=== PATIENT | female | born 1965 | race Caucasian/White ===

== ENCOUNTER → 2016-10-13 | Outpatient (CLI) | payer BC ==
--- NOTE | 2016-10-13 18:46 | WWHP ---
CHIEF COMPLAINT: Patient is here for her routine gynecologic exam and mammogram. HPI: This is a 51-year-old G0 with an LMP of 2013. The patient's is status post vasectomy. She states her periods stopped about 2 years ago and denies any postmenopausal bleeding. She is without gynecologic complaints. PAST MEDICAL HISTORY: Hypothyroidism. MEDICATIONS: 1. Levothyroxine 100 mcg daily. 2. Multivitamin daily. 3. Aspirin 81 mg daily. ALLERGIES: No known drug allergies. PAST SURGICAL HISTORY: Colonoscopy 2013. 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 SOCIAL HISTORY: She denies tobacco and drug use and drinks about 5 alcoholic drinks per week. She has been since 1983 and works at [employer]. FAMILY HISTORY: Mother had an [place] and dementia and at age 87. Father of an [place] and also had diabetes. Maternal aunt and sister had breast cancer. REVIEW OF SYSTEMS: She has gained about 8 pounds over the last year. She denies respiratory, cardiac or GI problems. PHYSICAL EXAM: Blood pressure 155/91. Height 5 feet 11 inches, weight 283 pounds. Temperature 94.4, pulse 71. This is a well-developed, heavyset white female who is alert and oriented x3, in no acute distress. HEENT is within normal limits. NECK: Supple without mass or thyromegaly. CHEST AND LUNGS: Clear to auscultation. HEART: Regular rate and rhythm. Breasts are without mass or discharge. Axillary is negative for adenopathy. BACK: Negative for CVA tenderness. ABDOMEN: Soft, nontender, without palpable masses. PELVIC: Normal external genitalia. Cervix and vagina appear normal. There is minimal atrophy. There is no evidence of prolapse. The uterus is midposition, nongravid size and nontender. There are no palpable adnexal masses or tenderness. Bimanual is somewhat limited secondary to her size. Rectovaginal is negative for mass or tenderness and is negative for occult blood. EXTREMITIES: Nontender. There is a reddish macular rash measuring approximately 5 x 8 cm on the anterior surface of the right lower leg. She states this has been there for about 3 months except for when she went to [place] and then it did go away at that time. IMPRESSION: 1. A 51-year-old menopausal female with normal gynecologic exam. 2. Elevated blood pressure. PLAN: 1. Pap smear was performed. 2. Self-breast examination was discussed. 3. Mammogram will be done today. 4. Osteoporosis prevention was discussed. She has normal bone density test done in 2013. I have recommended repeat this at about age 58. 5. She will do home blood pressure checks and also follow up with Dr. Green regarding her elevated blood pressure. She states she has an appointment to see him in 2 weeks. 6. She can use hydrocortisone cream on her right leg as needed. She will see Dr. Green in 2 weeks and talk to him about this if it has not gone away. 7. She will return in 1 year.
--- NOTE | 2016-10-14 11:31 | MM ---
Reason for exam: screening (asymptomatic). Last mammogram was performed 2 years and 4 months ago. History: Patient is nulliparous. Family history of breast cancer in sister at age 50 and breast cancer in maternal aunt at age 60. Benign US breast aspiration single RT of the right breast, November 26, 2013. Benign left mammotome panel of the left breast, November 03, 2011. Cancelled Left Mammotome of the left breast, July 28, 2009. Took hormonal contraceptives for 12 years beginning at age 16. Physical Findings: A clinical breast exam by your physician is recommended on an annual basis and results should be correlated with mammographic findings. MG 3D Screening Mammo W/Cad Bilateral CC and MLO view(s) were taken. Prior study comparison: June 05, 2014, bilateral MG diagnostic mammo w CAD [facility]. March 27, 2013, bilateral digital screening mammo w/CAD. The breast tissue is almost entirely fat. Finding: There is a 5.9mm equal density (isodense), lobulated mass located 3.8cm from the nipple in the left breast at 2-3 o'clock zone A. Previous ultrasound biopsy in the left breast. New finding since June 05, 2014 and March 27, 2013. ASSESSMENT: Incomplete: need additional imaging evaluation, BI-RAD 0 RECOMMENDATION: Ultrasound of the left breast. [facility] will attempt to contact patient to return for ultrasound.
== END | disposition home or self-care (01) ==
LOC: WWCWWP 08:55
PROVIDERS: ATTEND Obstetrics & Gynecology
DX: Z12.31 Encounter for screening mammogram for malignant neoplasm of breast (principal)
CPT/HCPCS: 77063; G0202

== ENCOUNTER → 2016-10-19 | Outpatient (CLI) | payer BC ==
--- NOTE | 2016-10-20 08:02 | USB ---
Reason for exam: additional evaluation requested from abnormal screening. History: Patient is nulliparous. Family history of breast cancer in sister at age 50 and breast cancer in maternal aunt at age 60. Benign US breast aspiration single RT of the right breast, November 26, 2013. Benign left mammotome panel of the left breast, November 03, 2011. Cancelled Left Mammotome of the left breast, July 28, 2009. Took hormonal contraceptives for 12 years beginning at age 16. Physical Findings: Nurse did not find any significant physical abnormalities on exam. US Breast Workup Limited LT Left breast ultrasound demonstrates a 0.5 x 0.3 x 0.3cm oval, cystic lesion at 1 o'clock. These results were verbally communicated with the patient and result sheet given to the patient on 10/19/16. ASSESSMENT: Benign, BI-RAD 2 RECOMMENDATION: Return to routine screening mammogram schedule for both breasts.
== END ==
LOC: RADUSWWP 16:08
PROVIDERS: ATTEND Obstetrics & Gynecology
DX: R92.8 Other abnormal and inconclusive findings on diagnostic imaging of breast (principal)

== ENCOUNTER → 2016-10-22 | Outpatient (CLI) | payer BC ==
[2016-10-22 13:25] LABS: Basophils # (A) 0.1 k/uL (0-0.2); Basophils % (A) 2 %; CH 30.5; CHCM 32.3; Eosinophils # (A) 0.2 k/uL (0-0.7); Eosinophils % (A) 3 %; HCT 41.3 % (34.0-46.0); HDW 2.34; HGB 13.3 gm/dL (11.4-16.0); Luc # (Auto) 0.24; Luc % (Auto) 4; Lymphocytes # (A) 1.5 k/uL (1.0-4.8); Lymphocytes % (A) 28 %; MCH 30.6 pg (25.0-35.0); MCHC 32.3 g/dL (31.0-37.0); MCV 94.8 fL (80.0-100.0); Mean Platelet Volume 7.7; Monocytes # (A) 0.4 k/uL (0-1.0); Monocytes % (A) 8 %; Neutrophils % (A) 56 %; RBC 4.35 m/uL (3.80-5.40); RDW 13.5 % (11.5-15.5); WBC 5.3 k/uL (3.8-10.6); WBC (Perox) 5.44
[2016-10-22 13:45] LABS: ALT 34 U/L (9-52); AST 24 U/L (14-36); Alkaline Phosphatase 84 U/L (38-126); Anion Gap 11 mmol/L; Blood Urea Nitrogen 14 mg/dL (7-17); Calcium 9.7 mg/dL (8.4-10.2); Carbon Dioxide 27 mmol/L (22-30); Chloride 102 mmol/L (98-107); Cholesterol 203 mg/dL (<200); Glucose 91 mg/dL (74-99); HDL Cholesterol 73 mg/dL (40-60); Non-African American GFR(MDRD) >60 (>60 ml/min/1.73 sqM); Potassium 3.9 mmol/L (3.5-5.1); Sodium 140 mmol/L (137-145); Total Bilirubin 0.8 mg/dL (0.2-1.3); Total Protein 7.2 g/dL (6.3-8.2); Triglycerides 103 mg/dL (<150)
== END | disposition home or self-care (01) ==
LOC: LABWHC1 13:07
PROVIDERS: ATTEND Internal Medicine
DX: I10 Essential (primary) hypertension (principal); E78.2 Mixed hyperlipidemia; E03.9 Hypothyroidism, unspecified
CPT/HCPCS: 36415; 80053; 80061; 84443; 85025

== ENCOUNTER → 2017-11-12 | Outpatient (CLI) | payer BC ==
[2017-11-12 11:20] LABS: Basophils # (A) 0.1 k/uL (0-0.2); Basophils % (A) 1 %; Eosinophils # (A) 0.3 k/uL (0-0.7); Eosinophils % (A) 5 %; HCT 43.2 % (34.0-46.0); Lymphocytes # (A) 1.8 k/uL (1.0-4.8); Lymphocytes % (A) 31 %; MCH 29.6 pg (25.0-35.0); MCHC 32.5 g/dL (31.0-37.0); MCV 91.1 fL (80.0-100.0); Mean Platelet Volume 7.9; Monocytes # (A) 0.4 k/uL (0-1.0); Monocytes % (A) 6 %; Neutrophils # (A) 3.1 k/uL (1.3-7.7); Neutrophils % (A) 56 %; Platelet Count 225 k/uL (150-450); RBC 4.74 m/uL (3.80-5.40); RDW 13.2 % (11.5-15.5); WBC 5.6 k/uL (3.8-10.6)
[2017-11-12 11:32] LABS: ALT 25 U/L (9-52); AST 21 U/L (14-36); Albumin 4.2 g/dL (3.5-5.0); Alkaline Phosphatase 105 U/L (38-126); Anion Gap 11 mmol/L; Blood Urea Nitrogen 14 mg/dL (7-17); Calcium 9.7 mg/dL (8.4-10.2); Carbon Dioxide 28 mmol/L (22-30); Chloride 104 mmol/L (98-107); Cholesterol 221 mg/dL (<200); Glucose 100 mg/dL (74-99); HDL Cholesterol 62 mg/dL (40-60); LDL Cholesterol,Calculated 131 mg/dL (0-99); Potassium 4.6 mmol/L (3.5-5.1); Sodium 143 mmol/L (137-145); Total Bilirubin 0.7 mg/dL (0.2-1.3); Total Protein 6.9 g/dL (6.3-8.2); Triglycerides 142 mg/dL (<150)
== END | disposition home or self-care (01) ==
LOC: LABWHC1 10:52
PROVIDERS: ATTEND Internal Medicine
DX: Z00.00 Encounter for general adult medical examination without abnormal findings (principal); E03.9 Hypothyroidism, unspecified
CPT/HCPCS: 36415; 80053; 80061; 84443; 85025

== ENCOUNTER → 2019-09-18 | Outpatient (CLI) | payer BC ==
[2019-09-18 09:15] VITALS: BP 144/75; PULSE 71; RESP 18; TEMP 97.8
--- NOTE | 2019-09-18 09:46 | P.HPOB ---
History of Present Illness H&P Date: 09/18/19 Chief Complaint: The patient is here for her routine gynecologic exam and ma mmogram. This is a 54-year-old G0 with an LMP of 2013. The patient is without gynecologic complaints. Her is status post vasectomy. The patient denies any postmenopausal bleeding. Review of Systems The patient has gained 8 pounds over the last year. She denies respiratory, cardiac, or G.I. problems. Past Medical History Past Medical History: Thyroid Disorder Additional Past Medical History / Comment(s): Hypothyroidism. 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 History of Any Multi-Drug Resistant Organisms: None Reported Additional Past Surgical History / Comment(s): Colonoscopy 2013(next after 10yr). Past Psychological History: No Psychological Hx Reported Smoking Status: Never smoker Past Alcohol Use History: Occasional (10 per week) Past Drug Use History: None Reported Additional History: She has been since 1983 and works at [employer]. - Past Family History Mother Family Medical History: Dementia, Myocardial Infarction ([place]) Additional Family Medical History / Comment(s): . Maternal aunt had breast cancer. Father Family Medical History: Diabetes Mellitus, Myocardial Infarction ([place]) Additional Family Medical History / Comment(s): . Sister(s) Family Medical History: Cancer Additional Family Medical History / Comment(s): Breast cancer. Medications and Allergies Home Medications Medication Instructions Recorded Confirmed Type Aspirin 81 mg PO DAILY 09/18/19 09/18/19 History Levothyroxine Sodium [Euthyrox] 100 mcg PO DAILY 09/18/19 09/18/19 History Multivitamin [Multivitamins Adult 1 each PO DAILY 09/18/19 09/18/19 History Gummies] Allergies Allergy/AdvReac Type Severity Reaction Status Date / Time No Known Allergies Allergy Unverified 09/18/19 09:16 Exam Vital Signs Temp Pulse Resp BP Pulse Ox 09/18/19 09:09 97.8 F 71 18 144/75 98 Intake and Output 09/17/19 09/18/19 09/18/19 22:59 06:59 14:59 Other: Weight 131.995 kg Height 5 feet 8 inches, weight 291 pounds, BMI 44.2. This is a well-developed well-nourished heavyset white female who is alert and oriented times 3 in no acute distress. HEENT: Within normal limits. NECK: Supple without mass or thyromegaly. CHEST AND LUNGS: Clear to auscultation. HEART: Regular rate and rhythm. BREASTS: Are without mass or discharge. AXILLARY EXAM: Negative for adenopathy. BACK: Negative for CVA tenderness. ABDOMEN: Soft, obese, nontender, without palpable masses. PELVIC EXAM: Normal external genitalia with minimal atrophy. Cervix and vagina appear normal. There is no unusual discharge. There is no evidence of prolapse. The uterus is midposition, nongravid size and nontender. There are no palpable adnexal masses or tenderness. RECTAL EXAM: Rectovaginal exam is negative for mass or tenderness and is negative for occult blood. EXTREMITIES: Nontender. IMPRESSION: 1. 54-year-old menopausal female with normal gynecologic exam. 2. Mildly elevated blood pressure. PLAN: 1. Pap smear was performed. 2. Self breast awareness was discussed with the patient. 3. Screening mammogram will be done today. 4. We have discussed her elevated blood pressure. I have recommended that she check her own blood pressure at home on a daily basis since she does have a blood pressure cuff. She is to follow-up with Dr. Green for blood pressure elevations. 5. Osteoporosis prevention was discussed. I have stressed the importance of adequate calcium, vitamin D and regular exercise. Recommended amounts of calcium and vitamin D were also discussed. I have recommended bone density testing. The order slip was given to the patient for this. Her last one was normal in 2013. 6. She was advised to return in one year for her annual well woman exam.
--- NOTE | 2019-09-19 13:19 | MM ---
Reason for exam: screening (asymptomatic). Last mammogram was performed 2 years and 11 months ago. History: Patient is postmenopausal and is nulliparous. Family history of breast cancer in sister at age 50 and breast cancer in maternal aunt at age 60. Benign US breast aspiration single RT of the right breast, November 26, 2013. Benign left mammotome panel of the left breast, November 03, 2011. Cancelled Left Mammotome of the left breast, July 28, 2009. Took hormonal contraceptives for 12 years beginning at age 16. Physical Findings: A clinical breast exam by your physician is recommended on an annual basis and results should be correlated with mammographic findings. MG 3D Screening Mammo W/Cad Bilateral CC and MLO view(s) were taken. Prior study comparison: October 13, 2016, bilateral MG 3d screening mammo w/cad. June 05, 2014, bilateral MG diagnostic mammo w CAD [facility]NEA. There are scattered fibroglandular densities. No suspicious abnormality. Left biopsy marker noted. No significant changes when compared with prior studies. ASSESSMENT: Negative, BI-RAD 1 RECOMMENDATION: Routine screening mammogram of both breasts in 1 year.
--- NOTE | 2019-10-02 12:08 | P.PN ---
Progress Note - Text Progress Note Date: 10/02/19 OUTPATIENT FOLLOW-UP NOTE TEST(S)/RESULTS: test results from 09/18/2019 include negative Pap smear and benign mammogram. METHOD OF NOTIFICATION: the patient was notified by phone. PATIENT COMMENTS: the patient is happy to hear these results. DIAGNOSIS: negative Pap smear and benign mammogram. DISCUSSION: PLAN: the patient is to return in one year for her annual well woman exam.
== END | disposition home or self-care (01) ==
LOC: WWCWWP 08:57
PROVIDERS: ATTEND Obstetrics & Gynecology
DX: Z12.31 Encounter for screening mammogram for malignant neoplasm of breast (principal)
CPT/HCPCS: 77063; 77067